=== PATIENT | female | born 1940 | race Caucasian/White ===

== ENCOUNTER → 2024-02-11 14:20 | Outpatient (REF) | payer OTHER, SELFPAY | LOC: WDC 14:20 | PROVIDERS: ATTENDING PHYSICIAN Internal Medicine | DX: Z12.31 Encounter for screening mammogram for malignant neoplasm of breast (principal) | CPT/HCPCS: 77063; 77067 ==

== ENCOUNTER → 2025-03-10 13:01 | Outpatient (REF) | payer OTHER, SELFPAY | LOC: RAD 13:01 | PROVIDERS: ATTENDING PHYSICIAN Internal Medicine | DX: Z12.39 Encounter for other screening for malignant neoplasm of breast (principal); Z78.0 Asymptomatic menopausal state | CPT/HCPCS: 77063; 77067 ==

== ENCOUNTER 2025-04-04 15:24 | Inpatient (IN) | payer OTHER, SELFPAY ==
[2025-04-04] VITALS (8 sets, daily range): BP systolic 117–192; BP diastolic 60–113; BMI 25.4; BMI 24.6
--- NOTE | 2025-04-04 12:22 | ED.GENMED ---
History of Present Illness
General
Chief Complaint: Cough
Source: patient
Time Seen by Provider: 04/04/25 12:06
History of Present Illness
History of Present Illness:
84-year-old female with past medical history of hyperlipidemia presents to the ER with family after she has been coughing for the last 2 weeks, nonproductive, mild shortness of breath, no relief with amoxicillin that was started about 4 days ago, 2
separate rounds of oral prednisone. Initially went to urgent care where she states she was tested for COVID and given a 5-day course of low-dose prednisone, followed up with primary care provider who restarted the patient on higher dose prednisone
but did not do any other testing, went back to the primary care provider on Sunday of this week where she was started on amoxicillin. Patient states now having loose stool with the continued cough and no improvement with her inhaler at home
however the patient's daughter notes she is unsure if the patient is using the inhaler correctly. No reported fevers during this time, chills, rigors, lower extremity edema, hemoptysis, pleurisy, chest pain or any other concerns. Social history
noncontributory.
Past History
Past History
ED Past Medical History: Hypercholesterolemia
ED Past Surgical History: None
Social History
Tobacco: Former smoker
Alcohol: None
Drug: None
Personal:
Living: alone
Review of Systems
Review of Systems
All Other Systems: ROS reviewed and negative except as documented in HPI and ROS
Phy Exam
Physical Exam
Physical Exam:
GENERAL: Alert , in no apparent distress, smiling and pleasant but persistently coughing throughout the exam
EYE: conjunctiva clear
NECK: Supple, no significant adenopathy.
ENT: o/p clr, mmm.
CARDIAC: Tachycardic rate and rhythm, systolic murmur left sternal border
LUNGS: Diffuse inspiratory and expiratory wheezing anterior and posterior lung vazquez, rhonchorous lung sounds throughout, deep inspiration induces coughing spasms
NEUROLOGICAL: Alert and oriented
SKIN: Warm and dry, skin intact.
MUSCULOSKELETAL: well perfused. No edema, small healing paronychia/small ingrown toenail to the right great toe without any erythema
PSYCH: Normal and appropriate interaction.
Scores
Heart Failure Risk
Heart Failure Risk Score: Not Applicable
Heart Score for Chest Pain Patients
STEMI patient?: Not applicable
Withdrawal Assessment of Alcohol
Withdrawal Assessment Completed?: Not applicable
Course
Orders/Labs/Results
Orders:
Orders
04/04/25 11:08
ECG [Electrocardiogram (*1)] Urgent
Reason for Study: Tachycardia
EKG- Treatment ONCE
04/04/25 12:21
Ipratropium/Albuterol Sulfate [Duoneb] 3 ml INH R NOW ONE
MethylPREDNISolone PF [Solu-Medrol Pf] 40 mg IV NOW STA
04/04/25 12:22
CR Chest - 2 Views Urgent
Comment:
Reason For Exam: cough x 2 weeks
04/04/25 12:27
Complete Blood Count/With Diff Urgent
Comprehensive Metabolic Panel Urgent
Lactic Acid Q4H
Comment: CANCEL 2nd LACTIC ACID IF 1st LACTIC ACID IS LESS THAN 2
NT-proBNP Urgent
Troponin I Urgent
04/04/25 14:36
Albuterol Nebs [Ventolin Nebules] 2.5 mg INH R NOW STA
CefTRIAXone [Rocephin] 1,000 mg IV NOW STA
Doxycycline [Vibramycin] 100 mg PO NOW STA
04/04/25 14:59
Admit/Transfer Patient As Directed
Co-Sign Provider:
Level of Care: Inpatient admission
Assign to:: Medical/Surgical
Physician / Group: [email or web address]
Diagnosis: Protracted asthmatic bronchitis
Reason for Hospitalization: Protracted asthmatic bronchitis failed OP Tx
Expected length of stay greater than two midnights?: Yes
ELOS- Estimated Length of Stay in days: 3
I certify the patient meets the requirements for IP care: Yes
04/04/25 15:00
Code Status As Directed
Resuscitation Status: Full Code
Regular
At Your Request: Full Participation
Does patient need a safe tray?: No
04/04/25 17:23
Acetaminophen [Tylenol] 650 mg PO Q4HPRN PRN
Guaifenesin Solution [Robitussin] 200 mg PO Q4HPRN PRN
Ipratropium/Albuterol Sulfate [Duoneb] 3 ml INH R Q4HPRN PRN
Ipratropium/Albuterol Sulfate [Duoneb] 3 ml INH R QID
04/04/25 17:23
PULMONARY CONSULT Routine
Consulting Provider: Jose Hawley
Was physician already notified: Yes
Reason for consult: Protracted asthmatic bronchitis
Activity As Directed
Activity Level: With Assistance
Intake/ Output As Directed
Frequency: Per unit guidelines
Vital Signs As Directed
Frequency: Per unit guidelines
Copd Education [RESP] Routine
DX Deep Vein Thrombosis Video Routine
04/04/25 18:00
Enoxaparin Sodium [Lovenox] 40 mg SC QPM
04/04/25 20:00
Doxycycline [Vibramycin] 100 mg PO Q12
04/05/25 00:00
Dexamethasone Sod Phosphate [Decadron] 4 mg IV Q12H
04/05/25 08:00
Lactobac/Bifidobac [Visbiome] 2 cap PO DAILY
04/05/25 14:00
CefTRIAXone [Rocephin] 1,000 mg IV Q24H
Abnormal Lab Results
04/04/25
12:27
WBC 15.0 H 10^3/uL
(4.8-10.8)
RBC 4.03 L 10^6/uL
(4.20-5.40)
Hct 36.4 L %
(37.0-47.0)
Abs Immat Gran (auto) 0.2 H 10^3/uL
(0-0.05)
Absolute Neuts (auto) 13.2 H 10^3/uL
(1.4-6.5)
Absolute Lymphs (auto) 0.7 L 10^3/uL
(1.2-3.4)
Absolute Monos (auto) 0.7 H 10^3/uL
(0.1-0.6)
Immature Gran % 1.5 H %
(0-0.5)
Neutrophils % 88.0 H %
(42.2-75.2)
Lymphocytes % 4.8 L %
(20.5-51.1)
Sodium 132 L mmol/L
(135-145)
Chloride 97 L mmol/L
(98-107)
AST 37 H U/L
(14-36)
ALT 44 H U/L
(0-35)
Alkaline Phosphatase 203 H U/L
(38-126)
04/04/25 12:27
04/04/25 12:27
Vital Signs
Initial and Last Documented VS:
Initial Vital Signs
Temp Pulse Resp BP Pulse Ox
98.4 F 122 20 192/113 97
04/04/25 11:03 04/04/25 11:03 04/04/25 11:03 04/04/25 11:03 04/04/25 11:03
Last Documented Vital Signs
Temp Pulse Resp BP Pulse Ox
99.7 F 110 18 149/80 94
04/04/25 17:38 04/04/25 19:41 04/04/25 17:38 04/04/25 17:38 04/04/25 19:41
MDM/Problems Addressed
Differential Diagnosis Includes:
- Bronchitis
- Pneumonia
- CHF
- PE
- COPD
- Atypical ACS
- Pleural effusion
- Malignancy
- Pneumonitis
MDM/Problems Addressed:
84-year-old female presented the ER for evaluation of cough that has been constant for the last 2 weeks, no relief with 2 rounds of steroids, currently on amoxicillin, minimal relief with inhaler. Patient is hypertensive here, tachycardic but no
acute respiratory distress and no evidence for hypoxia. Will check labs, EKG, chest x-ray. Will initiate treatment with DuoNeb and IV Solu-Medrol. Disposition pending.
*Radiology
Radiology exam reviewed: preliminary read by ED provider (Right lower lobe pneumonia)
*Pulse Oximetry
SaO2: 97
Oxygen Mode of Delivery: Room air
Patient hypoxic: no
*Licensed Mental Health Professional Interpretation
Rate: tachycardiac
Heart Rate: 120
Rhythm: sinus
*Critical Care Note
Total Time (30-74mins, 75-104mins- exclusive of procedures): Not Applicable
Patient Management
Discussion with other providers: Hospitalist
Escalation/DeEscalation of care consider admission/obs:
Patient's chest x-ray shows a right lower lobe pneumonia. She did have improvement following nebulizer treatment however her heart rate still remains around 120 bpm. Given her age, multiple trials of medications as an outpatient with minimal
improvement will admit here for IV antibiotics, steroids and nebulizer treatments. Family is in agreement with this plan. Hospitalist team is aware and accepts for continued evaluation and treatment.
ED Attending Note
-
Portions of this chart may have been created with voice recognition software.� Occasional wrong word or��sound alike� substitutions may have occurred due to the inherent limitations of voice recognition software.
Discharge Plan
Departure
Patient Disposition: Admit
Date of Disposition: 04/04/25
Time of Disposition: 14:39
Presentation/result/management discussed w/ accepting MD/DO: Hospitalist
Discharge Problem:
Pneumonia
Interventions
Interventions:
*Risk Screen - Suicide Last Done: 04/04/25 17:36
*General Assessment Last Done: 04/04/25 11:03
*Neglect/Abuse Screening Last Done: 04/04/25 14:12
*ED- Fall Risk Assessment Last Done: 04/04/25 11:53
*ED COVID-19 Vaccine History Last Done: 04/04/25 17:36
*Nursing Disposition Last Done: 04/04/25 17:19
ED- Pulmonary Assessment Last Done: 04/04/25 11:53
Discharge Date and Time
Discharge Date/Time: 04/04/25 17:20
[2025-04-04] MEDS: DUONEB 3 ML INH ×2 (12:38→20:55)
[2025-04-04] MEDS: SOLU-MEDROL PF 40 MG IV (12:38)
[2025-04-04 12:59] LABS: Hematocrit 36.4 % (37.0-47.0); Hemoglobin 12.5 g/dL (12.0-16.0); Mean Corp Hgb Conc. 34.3 g/dL (33.0-37.0); Mean Corpuscular Volume 90.3 fL (81.0-99.0); Nucleated Red Blood Cells % 0 %; Platelet Count 355 10^3/uL (130-400); Red Cell Dist. Width 12.4 % (11.5-14.5)
[2025-04-04 13:25] LABS: ALT (SGPT) 44 U/L (0-35); AST (SGOT) 37 U/L (14-36); Albumin 3.5 g/dl (3.5-5.0); Alkaline Phosphatase 203 U/L (38-126); Blood Urea Nitrogen 8 mg/dl (7-17); Calcium 10.0 mg/dl (8.4-10.2); Carbon Dioxide 29 mmol/L (22-30); Chloride 97 mmol/L (98-107); Estimated Creatinine Clearance 52 ml/min; Glucose 92 mg/dl (70-99); Potassium 4.3 mmol/L (3.5-5.1); Sodium 132 mmol/L (135-145); Total Protein 6.9 g/dl (6.3-8.2); eGFR > 60.00
[2025-04-04 13:38] LABS: Troponin I < 0.012 ng/ml
--- NOTE | 2025-04-04 14:52 | HPS.HSE ---
Family Physician
-
Family Physician: Isabela Nur
Chief Complaint
-
failed OP ABx coursed for bronchitis
History of Present Illness
84F Former smoker HX hyperlipidemia presents to the ER with family :
- eval for coughing for the last 2 weeks, nonproductive
- mild shortness of breath, no relief with amoxicillin that was started about 4 days ago, 2 separate rounds of oral prednisone. - Initially went to urgent care where she states she was tested for COVID and given a 5-day course of low-dose
prednisone, followed up with primary care provider who restarted the patient on higher dose prednisone but did not do any other testing, - went back to the primary care provider on Sunday of this week where she was started on amoxicillin.
- report loose stool with the continued cough and no improvement with her inhaler at home however the patient's daughter notes she is unsure if the patient is using the inhaler correctly.
ROS
No reported fevers during this time, chills, rigors, lower extremity edema, hemoptysis, pleurisy, chest pain o
Medical History
Past Medical History
Past Medical History: Reports Hypercholesterolemia
Past Surgical History: Reports None
Social History
Tobacco: Former Smoker
Alcohol: None
Drug: None
Family History
Family History: Not pertinent
Allergies / Home Medications
Allergies reflects when Allergies were last updated in [facility].
Home Medications with original date entered in [facility]
Allergy/Medication List:
Allergies
Allergy/AdvReac Type Severity Reaction Status Date / Time
clindamycin Allergy Rash Verified 04/04/25 11:03
If medication reconciliation has not been performed, why?: Medication List N/A
Review of Systems
-
Constitutional: Reports No Symptoms
EENT: Reports No Symptoms
Respiratory: Reports See HPI
Cardiac: Reports No Symptoms
Abdomen/GI: Reports No Symptoms
: Reports No Symptoms
Musculoskeletal: Reports No Symptoms
Skin: Reports No Symptoms
Neurological: Reports No Symptoms
Endocrine: Reports No Symptoms
Hematologic/Lymphatic: Reports No Symptoms
Psych: Reports No Symptoms
Physical Exam
Vital Signs
Vital Signs
Temp Pulse Resp BP Pulse Ox
98.4 F 118 20 161/76 100
04/04/25 11:03 04/04/25 14:16 04/04/25 11:03 04/04/25 14:16 04/04/25 14:16
Physical Exam
General: Well Developed, Well Nourished and No Apparent Distress
HEENT: NormoCephalic, Moist mucous membranes and Atraumatic
Respiratory: Wheezes (inspiratory and expiratory, diffusely anteroposterior chest )
Cardiac: S1/S2 and Regular Rhythm; No Murmur or Rub
GI: Soft, Non Tender, Non Distended and Normal Bowel Sounds; No Organomegaly
Rectal: Deferred by Provider
Musculoskeletal: No Clubbing, No Cyanosis and No Edema
Skin: No Rash
Neuro: Nonfocal/grossly intact
Laboratory Results
-
04/04/25 12:27
04/04/25 12:27
Laboratory Results
Lactic Acid Cancelled 04/04/25 12:30
Total Bilirubin 0.8 mg/dl (0.2-1.3) 04/04/25 12:27
AST 37 U/L (14-36) H 04/04/25 12:27
ALT 44 U/L (0-35) H 04/04/25 12:27
Alkaline Phosphatase 203 U/L (38-126) H 04/04/25 12:27
Troponin I < 0.012 ng/ml 04/04/25 12:27
Data Reviewed
-
Diagnostic Radiology: Other (pending CXR )
Medical Tests (Nuc Med, Echo, EKG etc): Report Reviewed by me
Lab Data: Labs Reviewed by me
Impression/Plan
-
Selected Entries
04/04/25
11:03
Temp 98.4 F
Pulse 122
Resp Rate 20
Blood pressure 192/113
SaO2 97
Oxygen Mode of Delivery Room air
Laboratory Tests
04/04/25
12:27
WBC 15.0 H
Sodium 132 L
Chloride 97 L
Creatinine 0.6
eGFR > 60.00
AST 37 H
ALT 44 H
Troponin I < 0.012
[id number] Pept 746
CXR pending final report
NO PRIOR hospitalist admission:
ASSESSMENT & PLAN
Pending Rx reconciliation
Protracted asthmatic bronchitis despite multiple coursed of PO steroids and PO ABx ; O2 Sat well on RA
Former smoker
Unclear prior established HX COPD or what not
Not in acute HF
Low suspicion for PE
- IV Decadron 4mg q12h
- DuoNeb qid and PRN
- f/u final CXR report
- Pul consult
My view on CXR suspicion of RLL infiltrate ? PNA
- agree with empiric IV CFTX and Doxy
- f/u final CXR
Loose BMS
suspect ABxAD
- add Visbiome daily
DVT Px: LMWH
Full code
IP MS
[2025-04-04] MEDS: VIBRAMYCIN 100 MG PO ×2 (15:12→19:43)
[2025-04-04] MEDS: ROCEPHIN 1000 MG IV (15:12)
[2025-04-04] MEDS: VENTOLIN NEBULES 2.5 MG INH (15:12)
[2025-04-04] MEDS: DUONEB INH ×2 (17:45→17:51)
[2025-04-04] MEDS: LOVENOX 40 MG SC (17:57)
[2025-04-04] MEDS: ROBITUSSIN 200 MG PO (19:43)
[2025-04-04] MEDS: TYLENOL 650 MG PO (21:30)
[2025-04-05] MEDS: DECADRON 4 MG IV ×2 (00:40→11:36)
[2025-04-05 07:00] VITALS: BP 145/102
[2025-04-05] MEDS: DUONEB 3 ML INH ×4 (07:34→20:12)
[2025-04-05] MEDS: LOTRIMIN 1% CREAM 1 APPLIC TOPICAL ×2 (07:38→21:01)
[2025-04-05] MEDS: VISBIOME 2 CAP PO (07:38)
[2025-04-05] MEDS: VIBRAMYCIN 100 MG PO ×2 (07:39→21:01)
--- NOTE | 2025-04-05 10:40 | W.PN.HOSP.TC ---
Today's Communication/Plan
-
continue current plan of care and follow pulm recs
Assessment / Plan
Assessment / Plan
Assessment:
Acute hypoxic respiratory insufficiency
Acute asthma exacerbation
community acquired pneumonia
prior history of smoking
- CXR: Parenchymal airspace opacity within the right lower lung, which very likely represents pneumonia
- wean O2
- continue Rocephin, Doxy
- continue IV steroids
- nebs scheduled and prn
- mucolytics
- IS/Acapella
- pulm consulted
HLD - statin
DVT Ppx:Lovenox
Code: Full
Anticipated Discharge: Within 24 hours
Subjective/Interval History
-
Date of Service: April 05, 2025
reports ongoing cough but improvement in wheezing and less SOB
no CP
weaned off O2 today
Objective Data
-
Vital Signs:
Vital Signs
Temp Pulse Resp BP Pulse Ox
97.8 F 91 16 145/102 94
04/05/25 07:00 04/05/25 07:35 04/05/25 07:35 04/05/25 07:00 04/05/25 07:35
I&O
04/04/25 04/05/25 04/06/25
06:59 06:59 06:59
Intake Total 480 / 480
Balance 480 / 480
Physical Exam
-
General: No Apparent Distress
HEENT: Normocephalic and Atraumatic
Respiratory: Wheezes (RLL) and Rhonchi
GI: Soft
Genito-urinary: No Costovertebral Tender
Neuro: AO x 3
Psych: Calm
Data Reviewed
-
Total Time Spent with Patient (in minutes): 42
Labs: Labs Reviewed by me
[2025-04-05 12:00] VITALS: BP 168/81; PULSE 121; O2SAT 95
--- NOTE | 2025-04-05 12:31 | CON.PUL ---
Consultation
Consultation Request
Date/Time Consultation Requested: 04/05/2025-8 AM
Date/Time Consultation Performed: 04/05/2025-8:30 AM
Requesting Provider: hospitalist
Performing Provider: Dr. Hawley
Reason for Consultation: shortness of breath
Medical History
-
Chief Complaint: shortness of breath
History of Present Illness:
84-year-old very distant and minimal former smoking female with a history of hyperlipidemia presents with mild shortness of breath and cough unresponsive to antibiotics and 2 rounds of oral prednisone found to likely have pneumonia-pulmonary
consulted for asthma/pneumonia 04/05/2025. The patient states that she had minimal smoking history and only smoked 'socially' and quit over 30 years ago. She has never been told she has COPD and is not on maintenance inhalers. She had mild
shortness of breath and a nonproductive cough. She denies any chest pain pleurisy, significant chest congestion, abdominal pain, nausea, focal weakness or swelling.
Past Medical History
Past Medical History: None ( Hyperlipidemia.. Constipation. Osteoporosis. Colon polyp. Sciatica. Right knee meniscus 2013. Skin cancer 2013. Cataract 2009. Epidural L5 2017.)
Social History
Tobacco: Former Smoker ( distant and minimal quit over 30 years ago-smoked on the weekends)
Alcohol: None
Drug: None
Living: With Family
Occupational Exposures: no known asbestos exposure
Environmental Exposures: no known tuberculosis exposure
Family History
Family History: Reviewed & Not Pertinent ( Father-CHF)
Allergies / Home Medications
Allergies
Allergy/AdvReac Type Severity Reaction Status Date / Time
clindamycin Allergy Rash Verified 04/04/25 11:03
Home Medications
�Medication �Instructions �Recorded �Confirmed �Last Taken �Type
Lactobac no.2-Bifidobac no.1-S. 1 cap PO QPM Gastrointestinal Issue 04/04/25 04/04/25 04/03/25 History
thermo 112.5 billion cell capsule
(Visbiome)
acetaminophen 500 mg tablet 1,000 mg PO BIDPRN PRN mild pain 04/04/25 04/04/25 04/03/25 History
(Tylenol Extra Strength)
albuterol sulfate 90 mcg/actuation 1 puff inhalation R Q4HPRN PRN sob 04/04/25 04/04/25 04/03/25 History
aerosol inhaler
amoxicillin 875 mg-potassium 1 tab PO Q12H Infection 04/04/25 04/04/25 04/03/25 History
clavulanate 125 mg tablet
biotin 10 mg tablet 10 mg PO DAILY Supplement 04/04/25 04/04/25 Unknown History
bismuth subsalicylate 262 mg 2 tab PO Q1H PRN diarrhea 04/04/25 04/04/25 04/04/25 History
chewable tablet (Pepto-Bismol)
clotrimazole-betamethasone 1 1 topical BID Anti-Inflammatory 04/04/25 Unknown History
%-0.05 % lotion
coenzyme Q10 100 mg capsule 100 mg PO DAILY Supplement 04/04/25 04/04/25 Unknown History
(CoQ-10)
dextromethorphan HBr 30 mg/5 mL 60 mg PO BIDPRN PRN cough 04/04/25 04/04/25 04/03/25 History
oral liquid
diclofenac sodium 1 % topical gel 2 g topical PRN PRN pain 04/04/25 04/04/25 Unknown History
[id number]-acetaminophen 7.5 30 ml PO HSPRN PRN sleep 04/04/25 04/04/25 04/03/25 History
mg-60 [id number]/30mL oral liqd
guaifenesin 600 mg tablet, 600 mg PO BID Cough 04/04/25 04/04/25 04/03/25 History
extended release 12 hr (Mucinex)
omega-3 fatty acids 1,000 mg PO DAILY Supplement 04/04/25 04/04/25 Unknown History
simvastatin 10 mg tablet 5 mg PO HS High Cholesterol 04/04/25 04/04/25 04/03/25 History
Review of Systems
-
Unable to Obtain full review of systems at this time due to: Other ( per HPI)
Vitals / Labs / Diagnostic Testing
Vital Signs
Temp Pulse Resp BP Pulse Ox
97.8 F 103 18 145/102 92
04/05/25 07:00 04/05/25 11:14 04/05/25 11:14 04/05/25 07:00 04/05/25 11:14
Lab Data
04/04/25 12:27
04/04/25 12:27
Diagnostic Testing:
Physical Exam
-
Exam:
Well-nourished and well-developed in no apparent distress
HEENT-atraumatic, normocephalic
Neck-supple, no JVD, no bruit
Heart-regular rate and rhythm-no murmurs, rubs or gallops
Chest-clear to auscultation, no wheezes, crackles, few rhonchi
Back-no tenderness
Abdomen-soft, nontender, nondistended, no hepatosplenomegaly
Extremities-no cyanosis, clubbing, edema and good peripheral pulses
Integument-intact, no rashes, lesions or ecchymosis
Neurology-alert and oriented, nonfocal motor and sensory exam
Assessment
-
84-year-old very distant and minimal former smoking female with a history of hyperlipidemia presents with mild shortness of breath and cough unresponsive to antibiotics and 2 rounds of oral prednisone found to likely have pneumonia-pulmonary
consulted for asthma/pneumonia 04/05/2025.
Community-acquired pneumonia
Suspected asthma-mild intermittent with acute exacerbation
Chronic cough
Leukocytosis
Mild hyponatremia
Mild transaminitis
Conditions present prior to admission:
Hyperlipidemia
Constipation
Osteoporosis
Sciatica
Skin cancer. Right knee meniscal tear. Cataract.
Plan
Suspect decompensation related to community-acquired pneumonia with some mild aspiration risk
Supplemental oxygen as needed
Assess discharge supplemental oxygen needs prior to discharge
Mucolytic's
Aspiration precautions
DuoNebs 4 times daily
Decadron 4 mg IV every 12 hours-begin to reduce in the next 24 hours if continues to improve
Check cultures
Empiric antibiotics-ceftriaxone and doxycycline initiated-finite course
Follow-up radiographically
Monitor leukocytosis
Follow-up LFTs
DVT prophylaxis-on Lovenox
Early nutrition
Early mobilization
Consider outpatient pulmonary follow-up to ensure pneumonia clearing, PFTs
Diagnostic data:
Chest x-ray 04/04/2025-right lower lobe pneumonia
Echocardiogram 08/11/2014-EF 55-60%, mild diastolic dysfunction, trace mitral regurgitation, no change since 2000
Data Reviewed
-
EKG: Report reviewed by me
Radiology: Image personally visualized and interpreted and Report reviewed by me
Medical Tests (Nuc Med, Echo etc): Report reviewed by me
Labs: Labs reviewed by me
Old Records: Reviewed
Total Time Spent with Patient (in minutes): 55
[2025-04-05] MEDS: STERILE WATER FOR INJECTION 10 ML IV (13:39)
[2025-04-05] MEDS: ROCEPHIN 1000 MG IV (13:39)
[2025-04-05 15:00] VITALS: BP 127/70
[2025-04-05] MEDS: LOVENOX 40 MG SC (17:18)
[2025-04-05] MEDS: TYLENOL 650 MG PO (21:07)
[2025-04-05 23:25] VITALS: BP 126/83
[2025-04-06] MEDS: DECADRON 4 MG IV ×2 (00:04→11:53)
[2025-04-06 06:49] LABS: Hematocrit 35.8 % (37.0-47.0); Hemoglobin 12.3 g/dL (12.0-16.0); Mean Corp Hgb Conc. 34.4 g/dL (33.0-37.0); Mean Corpuscular Volume 88.6 fL (81.0-99.0); Platelet Count 367 10^3/uL (130-400); Red Cell Dist. Width 12.5 % (11.5-14.5)
[2025-04-06 07:06] VITALS: BP 161/85
[2025-04-06] MEDS: DUONEB 3 ML INH ×2 (07:15→11:17)
[2025-04-06 07:19] LABS: Blood Urea Nitrogen 17 mg/dl (7-17); Calcium 9.0 mg/dl (8.4-10.2); Carbon Dioxide 28 mmol/L (22-30); Chloride 98 mmol/L (98-107); Estimated Creatinine Clearance 46 ml/min; Glucose 141 mg/dl (70-99); Potassium 4.6 mmol/L (3.5-5.1); Sodium 132 mmol/L (135-145); eGFR > 60.00
[2025-04-06] MEDS: VIBRAMYCIN 100 MG PO (08:27)
[2025-04-06] MEDS: LOTRIMIN 1% CREAM 1 APPLIC TOPICAL (08:28)
[2025-04-06] MEDS: VISBIOME 2 CAP PO (08:28)
--- NOTE | 2025-04-06 10:28 | W.PN.PUL3 ---
Today's Communication / Plan
-
Antibiotics
DuoNebs
Steroid with taper
Patient is being prepared for discharge home. Please send home on additional antibiotics to complete a 5 to 7-day course. Also sent home with prednisone taper. Outpatient pulmonary office follow-up will be arranged.
No additional recommendations at this time. Pulmonary service will now sign off. Please reconsult if there are any additional questions/concerns, or if patient's respiratory status deteriorates.
Assessment
-
84-year-old very distant and minimal former smoking female with a history of hyperlipidemia presents with mild shortness of breath and cough unresponsive to antibiotics and 2 rounds of oral prednisone found to likely have pneumonia-pulmonary
consulted for asthma/pneumonia 04/05/2025.
Community-acquired pneumonia at right lower lobe
Suspected asthma-mild intermittent with acute exacerbation
Chronic cough
Leukocytosis
Mild hyponatremia
Mild transaminitis
Conditions present prior to admission:
Hyperlipidemia
Constipation
Osteoporosis
Sciatica
Skin cancer. Right knee meniscal tear. Cataract.
Plan
Suspect decompensation related to community-acquired pneumonia with some mild aspiration risk
Supplemental oxygen as needed
Assess discharge supplemental oxygen needs prior to discharge
Mucolytics
Aspiration precautions
DuoNebs 4 times daily
Decadron 4 mg IV every 12 hours-begin to reduce today
Check cultures if she can produce a decent sample
Empiric antibiotics-ceftriaxone and doxycycline initiated-finite course
Follow-up radiographically
Trend WBC and monitor temperature curve
Trend LFTs
DVT prophylaxis-on Lovenox
Early nutrition
Early mobilization
Patient is being prepared for discharge home. Please send home on additional antibiotics to complete a 5 to 7-day course. Also sent home with prednisone taper. Outpatient pulmonary office follow-up will be arranged.
No additional recommendations at this time. Pulmonary service will now sign off. Thank you for allowing us to be involved in the care of this patient. Please reconsult if there are any additional questions/concerns, or if patient's respiratory
status deteriorates.
Diagnostic data:
Chest x-ray 04/04/2025-right lower lobe pneumonia
Echocardiogram 08/11/2014-EF 55-60%, mild diastolic dysfunction, trace mitral regurgitation, no change since 2000
Total time spent today was 39 minutes for this encounter. Time includes reviewing laboratory test/imaging results, reviewing pertinent medical records, obtaining and reviewing medical history, performing an appropriate exam, ordering medications,
tests and procedures. Time also includes documentation of this encounter, coordinating patient care and communicating with other healthcare professionals. Total time does not include separately billed tests performed on this date of service.
Subjective Data
-
Date of Service:
Date of Service: April 06, 2025
Chief Complaint: Pulmonary Follow Up
Subjective:
Patient seen today at bedside. Feeling much better. Currently denies SOB or cough.
Review of Systems
General: Other (Negative unless mentioned above)
Objective Data
Data Reviewed
Vital Signs / I&O / Oxygen:
Vital Signs
Temp Pulse Resp BP Pulse Ox
97.7 F 110 18 161/85 97
04/06/25 07:06 04/06/25 07:17 04/06/25 07:17 04/06/25 07:06 04/06/25 08:00
Intake and Output
04/05/25 04/06/25 04/07/25
06:59 06:59 06:59
Intake Total 1680 / 1680
Balance 1680 / 1680
SaO2 97
Nasal Cannula flow liters per 2
minute
Physical Exam
General: Respiratory Distress (negative), Comfortable, Chills (negative) and Sweats (negative)
HEENT: Normocephalic and Anicteric
Cardiovascular: S1-S2 and Peripheral Edema (negative)
Respiratory: Wheeze (negative), Crackles (Mild at right base), Rhonchi (negative) and Non-Labored Respirations
GI: Soft, Non Distended, Non Tender and Normal Bowel Sounds
Neurology: Awake, Alert and Tremors (negative)
Skin: Warm, Dry, Cyanosis (negative) and Jaundice (negative)
Labs/Micro/Reports
Lab Data
04/06/25 06:17
04/06/25 06:17
--- NOTE | 2025-04-06 12:22 | W.PN.HOSP.TC ---
Addendum entered and electronically signed by Ernestina Soliman MD 04/06/25 14:10:
total DC time 38 min
Original Note:
Today's Communication/Plan
-
see A/P
Assessment / Plan
Assessment / Plan
A/P:
# Acute hypoxic respiratory insufficiency, resolved
# Acute asthma exacerbation
# community acquired pneumonia
# prior history of smoking
Weaned off O2 support
CXR: Parenchymal airspace opacity within the right lower lung, which very likely represents pneumonia
weaned off O2 support
Can check MRSA screen, COVID
continue Rocephin, Doxy total 5 days, DC with Cefdinir and Doxy for 3 more days
IV steroid Decadron 4 mg IV Q12 -> PO prednisone taper
Duonebs scheduled and prn, CM to help set up home nebulizer
mucolytics
IS/Acapella
pulm consulted
# Mild Hyponatremia
Sodium level 132 today,
Monitor BMP
# Mild transaminitis likely reactive
Monitor LFT
# HLD - statin
DVT Ppx:Lovenox
Code: Full
Dispo: PT recc HH
DW daughter, MK and granddaughter at bedside
DW CM
Anticipated Discharge: Today
Subjective/Interval History
-
Date of Service: April 06, 2025
Objective Data
-
Labs:
Laboratory Results
04/06/25
06:17
WBC 11.4 H
Hgb 12.3
Hct 35.8 L
Plt Count 367
Sodium 132 L
Potassium 4.6
Chloride 98
Carbon Dioxide 28
BUN 17
Creatinine 0.6
Glucose 141 H
Calcium 9.0
Vital Signs:
Vital Signs
Temp Pulse Resp BP Pulse Ox
36.5 C 102 20 161/85 92
04/06/25 07:06 04/06/25 11:20 04/06/25 11:20 04/06/25 07:06 04/06/25 11:20
I&O
04/05/25 04/06/25 04/07/25
06:59 06:59 06:59
Intake Total 0 / 0
Balance 1680 / 1680
Review of Systems
-
All other systems: Reviewed and negative
Constitutional: Reports No Symptoms
Physical Exam
-
General: Well Developed, Well Nourished, No Apparent Distress, Comfortable and Conversant (speak in full sentences)
HEENT: Normocephalic and Atraumatic
Respiratory: Non Labored Respirations; Negative Wheezes (resolved), Rhonchi or Accessory Resp Muscle Use
Cardiac: Regular Rhythm and S1/S2
GI: Soft and Nontender
Neuro: Awake, Alert and Oriented
Psych: Calm and Intact Judgement/Insight
Data Reviewed
-
Diagnostic Radiology: Report Reviewed by me
Labs: Labs Reviewed by me
--- NOTE | 2025-04-06 13:20 | CM ---
CM met with pt and her family who were visiting; pt for discharge to home today. Pt is (I) amb and adls at baseline, drives locally, likes to be active and is a member of the [employer].
She has her own room with full bath and handicap accessible.
VN ordered by MD; pt chose [facility] for services. Referral sent via [facility].
Plan: Discharge to home with [facility]. Family will provide transport home.
[2025-04-06 13:32] LABS: COVID-19 Antigen Negative (Negative)
--- NOTE | 2025-04-06 13:51 | W.DCSUMMARY ---
Discharge Summary
Discharge Data
Date of Admission: 04/04/25
Date of Discharge: 04/06/25
-
Pending Results: No
Hospital Course
Principal Diagnosis:
Acute hypoxic respiratory insufficiency, resolved
Acute asthma exacerbation
Community acquired pneumonia
Mild transaminitis likely reactive
Chronic Diagnoses:�
Hyperlipidemia
Prior history of smoking
Consultations:�
Pulmonary
Procedures:�
None
Clinical course:�
This is a 84-year-old female, with past medical history as stated above, who presented with coughing and mild shortness of breath.
Problem 1:
Acute hypoxic respiratory insufficiency, resolved.
Acute asthma exacerbation.
Community acquired pneumonia.
Patient initially required minimal oxygen support on admission, but oxygen was weaned off to room air.
Her chest x-ray showed parenchymal airspace opacity within the right lower lung, which very likely represents pneumonia.
She was started with Rocephin and doxycycline, she can continue with Cefdinir and Doxy for 3 more days (total 5 days course).
She was also treated with IV steroid Decadron 4 mg IV Q12 during this admission, and can continue with oral prednisone taper outpatient.
Nebulizer machine was arranged for the patient. The patient can continue with DuoNeb as needed.
Problem 2:
Mild transaminitis likely reactive
Monitor LFT outpatient.
As for the rest of her medical problems, they were stable during her hospital stay.
Discharge Plan
-
Patient Disposition: Home with Home Care
Discharge Diagnosis/Procedures: Acute hypoxic respiratory insufficiency, resolved;
Acute asthma exacerbation;
Community acquired pneumonia (CXR showed Parenchymal airspace opacity within the right lower lung, which very likely represents pneumonia)
Condition: Fair
Diet: As tolerated
Activity: As tolerated
Driving Restrictions: As prior to admission
Blood Work: CBC, CMP in 1 week, result to PCP
Referrals:
Isabela Nur MD [Family Provider, Internal Medicine] - in less than 1 week
Jose Hawley MD [Active, Pulmonary Medicine]
Referral Note: follow-up pneumonia and asthma-PFTs and chest x-ray to ensure clearing
Additional Discharge Medication Instructions: Continue Cefdinir and doxycycline for 3 more days.
Avoid sun exposure and dairy products while on Doxycycline.
Continue prednisone taper as instructed.
Use duoneb via nebulizer as needed.
Prescriptions:
New
ipratropium-albuterol 0.5 mg-3 mg(2.5 mg base)/3 mL Solution For Nebulization
3 ml inhalation R Q4HPRN PRN (Reason: shortness of breath/wheezing) Qty: 180 0RF
doxycycline hyclate 100 mg capsule
100 mg PO BID 3 Days Qty: 6 0RF
cefdinir 300 mg capsule
300 mg PO Q12H 3 Days Qty: 6 0RF
prednisone 10 mg Tablet
See Rx Instructions .ROUTE .COMPLEX Qty: 30 0RF
Rx Instructions:
Take By Mouth:
40 mg daily x3 days, 30 mg daily x3 days,
20 mg daily x3 days, 10 mg daily x3 days.
Continued
uvkowkuls-MBX-IB-acetaminophen 7.5-60-30-1,000 mg/30 mL Liquid
30 ml PO HSPRN PRN (Reason: sleep)
simvastatin 10 mg Tablet
5 mg PO HS
acetaminophen [Tylenol Extra Strength] 500 mg Tablet
1,000 mg PO BIDPRN PRN (Reason: mild pain)
bismuth subsalicylate [Pepto-Bismol] 262 mg Tablet,Chewable
2 tab PO Q1H PRN (Reason: diarrhea)
albuterol sulfate 90 mcg/actuation Hfa Aerosol Inhaler
1 puff INHALATION R Q4HPRN PRN (Reason: sob)
dextromethorphan HBr 30 mg/5 mL Liquid
60 mg PO BIDPRN PRN (Reason: cough)
Patient Comments:
04/04/2025, Delsym cough syrup per pt.
Visbiome 112.5 billion cell Capsule
1 cap PO QPM
guaifenesin [Mucinex] 600 mg Tablet Extended Release 12hr
600 mg PO BID
biotin 10 mg Tablet
10 mg PO DAILY
clotrimazole-betamethasone 1-0.05 % Lotion
1 TOPICAL BID
coenzyme Q10 [CoQ-10] 100 mg Capsule
100 mg PO DAILY
omega-3 fatty acids Capsule
1,000 mg PO DAILY
diclofenac sodium 1 % Gel
2 g TOPICAL PRN PRN (Reason: pain)
Discontinued
amoxicillin-pot clavulanate 875-125 mg Tablet
1 tab PO Q12H
Patient Comments:
04/04/2025, filled on 04/01/2025 and instructed to take 1 tablet Q12H for 10 days.
Discharge Orders:
Discharge Patient (As Directed); Ordered 04/06/25
Ordered By: Ernestina Soliman
Discharge Date and Time
Print Language: IRISH
[2025-04-06 14:12] VITALS: BP 133/79
== END 2025-04-06 14:20 | disposition home health service (06) | DRG 202 ==
LOC: 4 WEST ACU 15:24
PROVIDERS: Internal Medicine; Physician Assistant Medical; ADMITTING PHYSICIAN Internal Medicine; ATTENDING PHYSICIAN Internal Medicine; CONSULT PHYSICIAN Internal Medicine Critical Care Medicine; EMERGENCY PHYSICIAN Student in an Organized Health Care Education/Training Program; FAMILY PHYSICIAN Internal Medicine
DX: J45.901 Unspecified asthma with (acute) exacerbation (principal); J18.9 Pneumonia, unspecified organism; E87.1 Hypo-osmolality and hyponatremia; R09.02 Hypoxemia; R74.01 Elevation of levels of liver transaminase levels; K59.00 Constipation, unspecified; M81.0 Age-related osteoporosis without current pathological fracture; M54.30 Sciatica, unspecified side; H26.9 Unspecified cataract; D72.829 Elevated white blood cell count, unspecified; E78.00 Pure hypercholesterolemia, unspecified; Z11.52 Encounter for screening for COVID-19; Z79.899 Other long term (current) drug therapy; Z85.828 Personal history of other malignant neoplasm of skin; Z87.891 Personal history of nicotine dependence
CPT/HCPCS: 71046; 80048; 80053; 83605; 83880; 84484; 85025; 85027; 87070; 87811; 94640; 96374; 96375; 97162; 99285

== ENCOUNTER → 2025-04-30 11:26 | Outpatient (REF) | payer OTHER, SELFPAY | LOC: RAD 11:26 | PROVIDERS: ATTENDING PHYSICIAN Internal Medicine Critical Care Medicine | DX: J18.9 Pneumonia, unspecified organism (principal) | CPT/HCPCS: 71046 ==